=== PATIENT | female | born 1960 | race Caucasian/White ===

== ENCOUNTER 2017-01-30 16:08 | Emergency (ER) | payer OTHER ==
[2017-01-30 16:37] VITALS: BP 140/74; PULSE 78; RESP 18; TEMP 98.2; O2SAT 96
--- NOTE | 2017-01-30 17:17 | C.PDOC ---
History Of Present Illness 56 year old female presents to the ED requesting a refill on her cholesterol medication. Patient states she ran out and is unable to see her PMD until the end of the month. She has no complaints at this time. Time Seen by Provider: 01/30/17 16:49 Chief Complaint (Nursing): Med Refill History Per: Patient History/Exam Limitations: no limitations Past Medical History Reviewed: Historical Data, Nursing Documentation, Vital Signs Vital Signs: Last Vital Signs Temp 98.2 F 01/30/17 16:30 Pulse 78 01/30/17 16:30 Resp 18 01/30/17 16:30 BP 140/74 01/30/17 16:30 Pulse Ox 96 01/30/17 18:48 - Medical History PMH: HTN, Hyperlipidemia, Hypothyroidism Family History: States: Unknown Family Hx Review Of Systems Except As Marked, All Systems Reviewed And Found Negative. Physical Exam - Physical Exam Appears: Non-toxic, No Acute Distress Skin: Normal Color, Warm, Dry Neurological/Psych: Oriented x3, Normal Speech, Normal Cognition ED Course And Treatment O2 Sat by Pulse Oximetry: 96 (Room air) Pulse Ox Interpretation: Normal Progress Note: Patient given Rx for medication refill. Medical Decision Making Medical Decision Making: Rx's faxed to [facility] Disposition - Disposition Disposition: HOME/ ROUTINE Disposition Time: 17:24 Condition: GOOD Prescriptions: Metformin HCl [Glucophage] 1 tab PO BID #60 tablet Lisinopril/Hydrochlorothiazide [Lisinopril-Hctz 20-12.5 mg Tab] 1 each PO DAILY #30 tablet Simvastatin 20 mg PO DAILY #30 tablet Levothyroxine [Synthroid] 88 mcg PO DAILY #30 tab Instructions: Medicine Refill (ED) Print Language: KINYARWANDA - Clinical Impression Clinical Impression: Medicine refill - Scribe Statement The provider has reviewed the documentation as recorded by the Scribe Neo Lowery. Provider Attestation: All medical record entries made by the Scribe were at my direction and personally dictated by me. I have reviewed the chart and agree that the record accurately reflects my personal performance of the history, physical exam, medical decision making, and the department course for this patient. I have also personally directed, reviewed, and agree with the discharge instructions and disposition.
== END 2017-01-30 17:35 | disposition home or self-care (01) ==
LOC: C.ER 16:08
DX: Z76.0 Encounter for issue of repeat prescription (principal)